=== PATIENT | male | born 1990 | race Caucasian/White ===

== ENCOUNTER 2021-04-25 17:10 | Emergency (ER) | payer SELFPAY ==
[~2021-04-25] VITALS: Ht 172.7 cm; Wt 65.2 kg
[2021-04-25 17:20] VITALS: BP 164/103
[2021-04-25] MEDS ORDERED: IBUPROFEN 400 MG TABLET. PO ONE (17:30)
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
--- NOTE | 2021-04-25 18:32 | RAD ---
Left ankle 3 views, left foot 3 views. HISTORY: Injury from a fall. Left ankle 3 views were taken of the left ankle. There is not evidence of an acute fracture or osseous normality . Left foot 3 views were taken of of the left foot. There is not evidence of an acute fracture or osseous abnorma lity. IMPRESSION: 1. Negative left foot. 2. Negative left ankle. Electronically signed by: Otoniel Cantu MD (04/25/2021 6:29 PM) [facility]
== END 2021-04-25 18:20 | disposition left against medical advice (07) ==
LOC: ER 17:10
DX: M79.672 Pain in left foot (principal)
CPT/HCPCS: 73610; 73630; 99284-25